=== PATIENT | male | born 1985 | race Caucasian/White ===

== ENCOUNTER → 2018-09-07 | Outpatient (CLI) | payer BC ==
--- NOTE | 2018-09-07 15:08 | XR ---
Right foot HISTORY: Right foot pain 3 views of the right foot Degenerative changes present at the first metatarsophalangeal and interphalangeal joints. Alignment, bone mineralization are maintained. No fracture or dislocation. IMPRESSION: No acute abnormality.
[2018-09-07 16:40] LABS: ALT 76 U/L (10-49); AST 52 U/L (14-35); Albumin/Globulin Ratio 2.47 (1.20-2.10); Alkaline Phosphatase 86 U/L (41-126); Cholesterol 180 mg/dL (0-200); Globulin 1.9 g/dL (2.1-3.7); Total Bilirubin 0.7 mg/dL (0.2-1.2); Total Protein 6.6 g/dL (6.2-8.2)
== END | disposition home or self-care (01) ==
LOC: LABWHC1 11:22
PROVIDERS: ATTEND Family Medicine
DX: M79.671 Pain in right foot (principal); E78.5 Hyperlipidemia, unspecified
CPT/HCPCS: 36415; 80061; 80076; 83721